=== PATIENT | male | born 1965 | race Caucasian/White ===

== ENCOUNTER 2017-05-14 17:49 | Inpatient (IN) ==
[2017-05-14] MEDS ORDERED: METOCLOPRAMIDE 10mg/2ml INJECTION IVP ONE (18:11)
[2017-05-14] MEDS ORDERED: KETOROLAC 30 MG/ML INJECTION IVP ONE (18:11)
[2017-05-14] MEDS ORDERED: HYDROMORPHONE 2 MG/ML INJECTION IVP ONE (18:11)
--- OUTSIDE RECORDS SUMMARY | 2017-05-14 18:18 | External Medical Summary | Referral Summary ---
:1965 Author Organization Via Address [address] [place] [address] Care Team Providers Name Role Phone No PCP, Pt States Primary Care Physician Encounter [facility] [id number] Date(s): 08/15/15 - 08/15/[address] [place] [id number] Discharge Diagnosis: Chronic pain in shoulder Final: Pain in right shoulder Final: Other chronic pain Discharge Disposition: 01-Home or Self Care Attending Physician: Sotero Garner MD Admitting Physician: Sotero Garner MD Referring Physician: No PCP, Pt States Vital Signs Most recent to oldest [Reference Range]: 1 Temperature Temporal Artery [36.3-37.8 degC] 36.6 degC (08/15/15 4:41 PM) Peripheral Pulse Rate [60-100 bpm] 86 bpm (08/15/15 5:48 PM) Respiratory Rate [14-20 br/min] 16 br/min (08/15/15 5:48 PM) Blood Pressure [90-140/60-90 mmHg] 132/98mmHg (08/15/15 5:48 PM) SpO2 100 % (08/15/15 5:48 PM) Problem List Condition Effective Dates Status Health Status Informant No Chronic Problems Active Tobacco user(Confirmed) Active patient Allergies, Adverse Reactions, Alerts No Known Medication Allergies Medications No Known Medications Results No data available for this section Immunizations No data available for this section Procedures No data available for this section Social History Social History Type Response Smoking Status Current every day smoker; Type: Cigarettes; Tobacco use per day : 1 Pack Assessment and Plan No data available for this section
--- OUTSIDE RECORDS SUMMARY | 2017-05-14 18:18 | External Medical Summary | Referral Summary ---
:1965 [address] [facility] Address [address] [place] [address] Care Team Providers Name Role Phone No PCP, Pt States Primary Care Physician Encounter [facility] Date(s): 08/15/15 - 08/15/[address] [facility] [address] [place] [address] Discharge Diagnosis: Chronic pain in shoulder Discharge Disposition: 01-Home or Self Care Attending Physician: Harjit Mcnally MD Admitting Physician: Bay Abarca DO Referring Physician: No PCP, Pt States Vital [...] Reactions, Alerts No Known Medication Allergies Medications cyclobenzaprine 10 mg oral tablet 10 mg 1 tabs, Oral, Bedtime (once a day), as needed for spasm, X 10 days, # 10 tabs, 0 Refill(s) Start Date: 08/15/15 Stop Date: 08/25/15 Status: OrderedPercocet 5/325 oral tablet 1 tabs, Oral, q6hr, as needed for pain, X 4 days, # 16 tabs, 0 Refill(s) Start Date: 08/15/15 Stop Date: 08/19/15 Status: Ordered Results No data available for this section Immunizations No data available for this section Procedures No data available for this section Social History Social History Type Response Smoking Status Current every day smoker; Type: Cigarettes; Tobacco use per day : 1 Pack Assessment and Plan No data available for this section
--- OUTSIDE RECORDS SUMMARY | 2017-05-14 18:18 | External Medical Summary | Continuity of Care Document ---
:1965 Author Organization Via [facility] [place] Allergies Active Description Code Type Severity Reaction Onset Reported/ Identified Relationship Clinical to Patient Status Yes No Known NKMA N/A N/A 08/15/2015 Medication Allergies Yes No Known No Drug Unknown N/A 09/27/2015 Allergies Known Aller Aller gy gies Medications Problems Date Dx Coded Attending Type Code Diagnosis Diagnosed By 08/19/2015 Patsy DOZIER, Sotero Redman Final G89.29 Other chronic pain 08/19/2015 Patsy DOZIER, Sotero Redman Reason M25.511 Pain in right shoulder Procedures Results Test Result Range STREP THROAT SCREEN (GROUP A) - STREP THROAT CULTURE (GROUP A) - 09/27/15 07:37 Microbiology Encounters ACCT No. Visit Discharge Status Pt. Type Provider Facility Loc./Unit Complaint Date/Time [id number] 08/15/2015 08/15/2015 DIS Emergency Patsy [facility] ED Right 13 15:52:00 17:48:00 , Sotero Chambers [facility] pain on Zack
[2017-05-14] MEDS ORDERED: SALINE FLUSH 10ml SYRINGE ONE ×2 (18:19→21:46)
[2017-05-14] MEDS ORDERED: IOHEXOL 300mg/ml 100ml INJECTION ONE (18:19)
[2017-05-14] MEDS ORDERED: NS 100 ML ONE (18:19)
--- NOTE | 2017-05-14 18:19 | Emergency Department Report ---
General Adult HPI - General Chief complaint: Abdominal Pain Stated complaint: Severe abd pain Time Seen by Provider: 05/14/17 17:56 Source: patient Mode of arrival: ambulatory Limitations: no limitations - History of Present Illness HPI narrative: Patient reports to ED with two hours of severe abdominal/pelvic pain with scrotal and right sided inguinal swelling. Patient states he has had a hernia for years but has never sought treatment for this because it rarely caused any problems, and if it started causing pain he could "push it back in". Patient states he usually has some degree of inguinal and scrotal swelling, but two hours ago he noticed a larger area of swelling when the pain began. He describes a constant severe right inguinal pain that radiates to the kan- umbilical region. He has not taken any medication for pain, and has never been seen by a surgeon for the hernia because he is "deathly afraid of needles". Onset (ago): hour(s) Location: abdomen, pelvis, genitals Radiation: periumbilical Severity: severe Severity scale (1-10): >10 Quality: sharp, constant Treatments prior to arrival: none - Related Data Home Medications Medication Instructions Recorded Confirmed No known Home medications [No home 05/14/17 05/14/17 meds] Allergies Allergy/AdvReac Type Severity Reaction Status Date / Time No Known Allergies Allergy Verified 05/14/17 18:21 Review of Systems All systems: reviewed and negative except as stated Constitutional: Denies: fever, chills, weakness Gastrointestinal: Reports: abdominal pain. Denies: nausea, vomiting, diarrhea, constipation Genitourinary: Denies: urgency, dysuria PFSH Patient Stated Medical History Substance Use Disorder Yes: meth Surgical History: tonsillectomy - Social History Smoking status: Current every day smoker Substance use type: former substance user, methamphetamine Physical Exam - Limitations Limitations: no limitations - General General appearance: alert, in distress (writhing in pain, holding his groin) - Normal Exams: Head:: Normocephalic without trauma Neck:: Full range of motion, without adenopathy, JVD, bruits or thyromegaly Chest/Respirations:: Clear all soliz, with good airflow, and symmetry bilaterally Cardiovascular:: Regular rate and rhythm, without murmur or gallop, Pulses 2+ all extremities, capillary refill, <2 seconds all extremities Genitourinary:: Penis without lesions Lymphatic:: No lymphadenopathy, or lymphedema noted Musculoskeletal:: No tenderness, or deformity noted, good range of motion, all extremities Neurological:: Patient is alert, and oriented, cranial nerves, motor/sensory/ cerebellar, exams w/o gross deficits, to observation Psychiatric:: Patient exhibits, appropriate attention, emotion and affect - Abdominal Exam Abdominal exam: Present: tenderness (kan-umbilical region and RLQ/pelvis), guarding, hypoactive bowel sounds (x4), hernia (large right inguinal hernia, non -reducible) Abdominal tenderness: Present: RLQ, severe - exam: Present: scrotal swelling (bilaterally). Absent: testicular tenderness - Expanded Exam image: 1 - large right non-reducible inguinal hernia Course Vital Signs Temperature 97.4 F 05/14/17 17:50 Pulse Rate 71 05/14/17 17:50 Respiratory Rate 20 05/14/17 17:50 Blood Pressure 165/91 H 05/14/17 17:50 Pulse Oximetry 100 05/14/17 17:50 Temperature 97.4 F 05/14/17 17:50 Pulse Rate 86 05/14/17 20:16 Respiratory Rate 18 05/14/17 18:31 Blood Pressure 145/87 H 05/14/17 20:16 Pulse Oximetry 100 05/14/17 20:16 Medical Decision Making - [facility] Narrative Medical decision making narrative: pt given toradol 30 mg IV, dilaudid 0.5 mg IV, reglan 10 [address] IV to relief CT abdomen/pelvis w/ contrast - patient has a large inguinal hernia with multiple loops of small bowel both within the hernia as well as adjacent to it showing bowel obstruction distal and significant incarceration within the hernia , as well as thickening to the wall within the hernia indicative of ischemia. CBC - n CMP - n UA - n Patient discussed with Dr. Danielle - will see the patient in ER, planning on admitting for immediate surgical release - Lab Data Result diagrams: 05/14/17 18:26 05/14/17 18:26 Lab Results 05/14/17 05/14/17 05/14/17 Range/Units 18:26 18:26 18:26 WBC 15.0 H (4.5-11.0) T/MM3 RBC 5.12 (4.50-5.90) M/MM3 Hgb 15.6 (13.5-17.5) GM/DL Hct 43.9 (41-53) % MCV 85.7 (80-100) UM3 MCH 30.5 (26-34) UUG MCHC 35.5 (31-37) GM/DL RDW Std Deviation 38.6 (36.9-50.2) FL Plt Count 312 (130-400) T/MM3 MPV 9.6 (9.4-12.4) UM3 Immature Gran % (Auto) 0.3 (0.0-0.5) % Neut % (Auto) 74.8 H (33-66) % Lymph % (Auto) 17.2 L (23-45) % [place] % (Auto) 6.0 (0-9.0) % Eos % (Auto) 1.4 (0-4) % Baso % (Auto) 0.3 (0-2) % Neut # 11.2 H (1.8-7.7) T/MM3 Lymph # 2.6 (1-4.8) T/MM3 [place] # 0.9 H (0-0.8) T/MM3 Eos # 0.2 (0-0.5) T/MM3 Baso # 0.0 (0-0.2) T/MM3 Abs Immat Gran (auto) 0.05 H (0.00-0.03) T/MM3 Turbidity < 20 (0-20) Sodium 137 (134-144) MEQ/L Potassium 3.7 (3.6-5) MEQ/L Chloride 105 (98-107) MEQ/L Carbon Dioxide 25 (22-30) MEQ/L Anion Gap 7 (5-15) MEQ/L BUN 19.0 (9-20) MG/DL Creatinine 0.9 (0.8-1.5) MG/DL GFR Calculation 88 BUN/Creatinine Ratio 21 (6-26) RATIO Glucose 116 H (75-110) MG/DL Calculated Osmolality 267 (261-280) MOSM/KG Calcium 9.9 (8.4-10.2) MG/DL Total Bilirubin 1.00 (0.20-1.30) MG/DL Conjugated Bilirubin 0.00 (0.00-0.30) MG/DL Unconjugated Bilirubin 0.80 (0.00-11.10) MG/DL Icterus Index < 2 (0-7) AST 20 (17-59) U/L ALT 37 (21-72) U/L Alkaline Phosphatase 100 (38-126) U/L Total Protein 7.0 (6.3-8.2) G/DL Albumin 4.5 (3.5-5.0) G/DL Globulin 2.5 (2.4-3.6) G/DL Albumin/Globulin Ratio 1.8 (1.1-2.2) RATIO Specimen Hemolysis < 15 (0-25) Ur Collection Type Urine, clean catch Urine Color Yellow (YELLOW) Urine Clarity Sl cloudy Urine pH 7.5 (5.0-8.0) Ur Specific [place] 1.020 (1.015-1.025) Urine Protein Negative (NEGATIVE) Urine Glucose (UA) Negative (NEGATIVE) Urine Ketones Trace A (NEGATIVE) Urine Occult Blood Negative (NEGATIVE) Urine Nitrate Negative (NEGATIVE) Urine Bilirubin Negative (NEGATIVE) Urine Urobilinogen 0.2 (NORMAL) EU/DL Ur Leukocyte Esterase Negative (NEGATIVE) Urinalysis Comment Microscopic not ind. Disposition Clinical Impression: Incarcerated inguinal hernia Disposition: 02 [place] [facility] [place] Care Condition: Improved Prescriptions: No Action No known Home medications [No home meds] 0 #0 misc - Seen By: physician
[2017-05-14] MEDS ORDERED: FentaNYL 100 MCG/2 ML INJECTION IVP ONE (18:37)
[2017-05-14] MEDS ORDERED: ERTAPENEM 1 G in NS 100 ML IV ONE (20:59)
[2017-05-14] MEDS: LR 1,000 ML IV SCH ×2 (21:30→23:01)
--- NOTE | 2017-05-14 21:39 | Anesthesia Preoperative Report ---
Anesthesia Preoperative Record - Date and Time Date: 05/14/17 Preoperative Diagnosis: Severe abd pain Proposed Procedure: Exp. lap NPO Since Date: 05/14/17 NPO Since Time: 12:00 (HAD FULL LUNCH) Allergies/Adverse Reactions: Allergies Allergy/AdvReac Type Severity Reaction Status Date / Time No Known Allergies Allergy Verified 05/14/17 18:21 - Vital Signs Vital Signs: Temperature 97.4 F 05/14/17 17:50 Pulse Rate 86 05/14/17 20:16 Respiratory Rate 18 05/14/17 18:31 Blood Pressure 145/87 H 05/14/17 20:16 Pulse Oximetry 100 05/14/17 20:16 Oxygen Delivery Method Room Air Height and Weight: Height 5 ft 10 in Weight 93.7 kg - Medications Home Medications: Home Medications Medication Instructions Recorded Confirmed Type No known Home medications [No home 05/14/17 05/14/17 History meds] Is Patient on Beta Med?: No - Surgical History HEENT Surgeries: Reports: Tonsillectomy Anesthesia Reactions: None Hx Family Anesthesia Reaction: No History of Motion Sickness: No - Social History Smoking Status: Current every day smoker packs per day: 1 Pack-years: 40 Hx Chewing Tobacco Use: No Second Hand Exposure: Yes Substance Use Type: former substance user, methamphetamine Alcohol Intake Frequency: does not drink - Pertinent Findings Laboratory: CBC and BMP 05/14/17 18:26 05/14/17 18:26 BMP 05/14/17 18:26 Sodium 137 Potassium 3.7 Chloride 105 Carbon Dioxide 25 BUN 19.0 Creatinine 0.9 Glucose 116 H Calcium 9.9 Liver Function 05/14/17 Range/Units 18:26 Total Bilirubin 1.00 (0.20-1.30) MG/DL AST 20 (17-59) U/L ALT 37 (21-72) U/L Alkaline Phosphatase 100 (38-126) U/L Albumin 4.5 (3.5-5.0) G/DL Urine 05/14/17 Range/Units 18:26 Urine Color Yellow (YELLOW) Urine Clarity Sl cloudy Urine pH 7.5 (5.0-8.0) Ur Specific [place] 1.020 (1.015-1.025) Urine Protein Negative (NEGATIVE) Urine Glucose (UA) Negative (NEGATIVE) EKG Rhythm: Normal Sinus Rhythm - Physical Exam Respiratory Exam: Present: lungs clear, bilateral breath sounds equal Cardiovascular Exam: Present: regular rate and rhythm, no murmur - Airway Assessment Mallampati Score: II TMD: 3 Fingerbreadths Neck Extension: good Overall Assessment: no airway concerns - ASA ASA Score: 2, E - Plan Anesthesia: General Inhalation Gases - Discussion Discussion: Discussed risks/options/alternatives of anesthesia and questions answered. Patient consents. Nursing pain assessment noted. Attestation Statement: Prior to the delivery of any anesthetic medication, I examined the patient, developed the plan, obtained the patient's consent and discussed the risk and benefits of the procedure with the patient/guardian. - Additional Information Comments: Emergent Case with acute Abdomen. RSI with CCP Seen by Anesthesia: Yes
[2017-05-14] MEDS ORDERED: KETAMINE 500 MG/10 ML INJECTION ONE (21:44)
[2017-05-14] MEDS ORDERED: SUFentanil 50mcg/ml INJECTION ONE (21:44)
[2017-05-14] MEDS ORDERED: PROPOFOL 20 ML ONE (21:44)
[2017-05-14] MEDS ORDERED: ROCURONIUM 50 MG/5 ML INJECTION IVP ONE (21:44)
[2017-05-14] MEDS ORDERED: SUCCINYLCHOLINE 20mg/mL 10mL INJECTION ONE (21:44)
--- NOTE | 2017-05-15 00:09 | General Surgery Procedure Note ---
Date of Procedure: 05/15/17 Surgeon: Shashi Anesthesia: General TIVA, General Inhalation Gases Postoperative Diagnosis: incarcerated right scrotal/inguinal hernia Procedure: right inguinal hernia repair, exploratory laparotomy. Estimated Blood Loss: See Anesthesia Record.
[2017-05-15] MEDS ORDERED: METOCLOPRAMIDE 10mg/2ml INJECTION IVP PRN (00:31)
[2017-05-15] MEDS ORDERED: ONDANSETRON 4 MG/2 ML INJECTION IVP PRN ×2 (00:31→00:32)
[2017-05-15] MEDS ORDERED: KETOROLAC 30 MG/ML INJECTION IVP PRN (00:32)
[2017-05-15] MEDS ORDERED: HYDROMORPHONE 2 MG/ML INJECTION IVP PRN (00:32)
[2017-05-15] MEDS: D5-1/2NS with KCL 20mEq 1,000 ML IV SCH ×3 (00:43→18:40)
[2017-05-15] MEDS: FAMOTIDINE PB 20 MG/50 ML BAG IV SCH ×3 (00:58→23:57)
[2017-05-15 02:19] VITALS: BMI 30.7
--- NOTE | 2017-05-15 07:02 | History and Physical ---
FINDINGS Mr. Odell is a 51-year-old male whom I was asked to see today as a result of a suspected incarcerated, possible strangulated right inguinal hernia. The patient was fairly somnolent upon my entering the trauma bay. He did answer when spoken to but was very short with his answers. Apparently he has had an inguinal hernia for the last 15-20 years. The patient states that it has never really caused him much in the way of pain or discomfort until after lunch today. The patient states that he then began to develop a severe pain. Pain was constant in nature. Pain was so severe that he presented to the emergency room for further evaluation. The patient has received some pain medication and currently, as above, is fairly somnolent and it was difficult to obtain much history from the patient himself. PAST MEDICAL HISTORY Chronic Illness/System disorders: None. PAST SURGICAL HISTORY Tonsillectomy. MEDICATIONS No known drug allergies. SOCIAL HISTORY The patient denies alcohol use. He states he smokes about a pack of cigarettes a day. Apparently he has shared with the ER physician that he used to abuse methamphetamines. FAMILY HISTORY The patient states that his mother her 60s from a stroke. His father in his 80s of unknown cause. REVIEW OF SYSTEMS A review of systems was undertaken with the patient and was essentially negative except as stated above in findings section for Constitutional, HEENT, Cardiac, Respiratory, GI, , Musculoskeletal, Hematologic/Oncologic, Endocrine and Psychiatric. PHYSICAL EXAMINATION GENERAL: The patient is a 51-year-old male who does appear to be in some discomfort. VITALS: Pulse 89. Blood pressure 145/87. SaO2 100% on room air. Temperature 97.4. HEENT: Normocephalic. Pupils are equal, round and reactive to light and accommodation. NECK: Supple without lymphadenopathy. CHEST: Clear to auscultation bilaterally. HEART: Regular rate and rhythm. Normal S1 and S2 without gallops, murmurs or clicks. ABDOMEN: Visualization of the abdomen does reveal a large mass within the right inguinal region. The mass does extend in the right scrotum. The abdomen itself is fairly scaphoid in its appearance. Palpation of the abdominal wall does not elicit any severe pain. There was no evidence for guarding or rebound. Palpation within the right inguinal region does reveal a firm mass. This mass is tender upon palpation. Additionally, the mass within the scrotum is also fairly firm and tender in nature. Mass is not reducible in nature. EXTREMITIES: Without clubbing, cyanosis, or edema. NEURO: Cranial nerves II-XII grossly intact. Patient is without focal motor or sensory deficits. LABORATORY/RADIOGRAPH EVALUATION The patient had a CBC through in the ER and his white count was 15.0. Hemoglobin is 15.6. CMP was obtained and found to be without marked abnormalities. CT scan of his abdomen and pelvis was obtained. CT scan showed a large right inguinal hernia containing bowel loops with resultant obstruction. There was some extensive adjacent fat stranding. Some bowel loops within the hernia showed some wall thickening raising the possibility of ischemia. ASSESSMENT A 51-year-old gentleman with incarcerated, possible strangulated right inguinal hernia with associated small bowel obstruction. PLAN Right inguinal herniorrhaphy, possible laparotomy, possible small bowel resection. I informed the patient that given his severe pain noted on examination within his right inguinal region and right scrotum in conjunction with this incarcerated hernia and CT scan findings suggestive of possible ischemic ischemia involving his small bowel with associated small bowel obstruction, I would recommend proceeding with surgical intervention. I did discuss with the patient what a right inguinal herniorrhaphy would entail with possible laparotomy, possible small bowel resection. The patient understood and wished to proceed. YAAKOV
[2017-05-15] MEDS: MORPHINE SULFATE 4 MG SYRINGE IVP PRN ×2 (07:38→12:08)
--- NOTE | 2017-05-15 08:15 | CT Scan Report ---
Indication: inguinal hernia, incarcerated PROCEDURE: CT abdomen pelvis w con: Encounter: Initial Comparison: None Technique: Axial CT images were performed through the abdomen and pelvis after the administration of intravenous contrast. Coronal and sagittal two-dimensional reformats. Automated Exposure Control and Iterative Reconstruction dose reducing techniques were utilized. Contrast: Omnipaque 300 99 mL Findings: The lung bases are clear. The liver shows several small probable cysts, most of which are too small to definitively characterize. No bile duct dilatation. The gallbladder is unremarkable. The spleen, pancreas and adrenal glands are within normal limits. Right kidney is normal. Left renal cyst. No abdominal or pelvic lymphadenopathy. Bladder is displaced towards the left by dilated small bowel loops with wall thickening and inflammatory change in the right central pelvis. This is due to an incarcerated right inguinal hernia with thick-walled dilated small bowel loops within the hernia sac. This appears to be an indirect type. Hernia measures up to 11 cm transverse diameter and over 15 cm craniocaudally. No free air or mesenteric venous gas appreciated. There are some upstream mildly dilated fluid-filled loops of small bowel as well. Bone windows are unremarkable. The appendix is normal. Bone windows are unremarkable for age. Impression: Large incarcerated right inguinal hernia causing a high-grade small bowel obstruction. Developing strangulation cannot be excluded as there is wall thickening and edema within several small bowel loops that could be due to vascular compromise and developing ischemia. Emergent surgical consultation is recommended. There is a preliminary report by [facility]. .
--- NOTE | 2017-05-15 09:32 | Anesthesia Postoperative Note ---
- Date and Time Date: 05/15/17 Time: 09:31 - Status Patient Participated in Evaluation: Patient Participated in Person Vital Signs: Temperature 98.2 F 05/15/17 03:30 Pulse Rate 94 05/15/17 05:45 Respiratory Rate 17 05/15/17 05:45 Blood Pressure 131/82 05/15/17 05:00 Pulse Oximetry 96 05/15/17 05:45 Oxygen Delivery Method Room Air Oxygen Flow Rate 2 Respiratory Function: Airway Patent Cardiovascular Function: Regular Pulse EKG Rhythm: Normal Sinus Rhythm Mental Status: Alert and Oriented Hydration: IV Infusing Complications During Recover: None Apparent Post Anesthesia Care Notes: pt resting comfortably in ICU. No questions or concerns at this time. - Follow-Up Instructions Instructions: Per Surgeon
[2017-05-15] MEDS: KETOROLAC 15 MG/ML INJECTION IVP PRN ×2 (12:07→21:32)
[2017-05-15] MEDS: ERTAPENEM 1 G in NS 100 ML IV SCH (13:29)
--- NOTE | 2017-05-15 14:15 | Operative Note ---
DATE OF SERVICE 05/15/2017 SURGEON Landen Danielle MD PREOPERATIVE DIAGNOSIS Incarcerated, possible strangulated right inguinal/scrotal hernia. POSTOPERATIVE DIAGNOSIS Incarcerated right inguinal/scrotal inguinal hernia. PROCEDURE Repair of incarcerated right inguinal/scrotal hernia, exploratory laparotomy. ANESTHESIA General endotracheal EBL AND FLUIDS Please see chart. BRIEF HISTORY/INDICATIONS Mr. Odell is a 51-year-old gentleman who has had a right inguinal hernia over the last 15-20 years per his report. Today, however, the hernia became exquisitely painful and firm in nature. The patient presented to our emergency room facility. CT scan was obtained that did reveal a potentially strangulated right inguinal hernia. Upon examination the patient was found to have a large mass within the right inguinal region that extended into the right scrotum. This mass was quite tender upon palpation. Mass was nonreducible in nature. As a result of the above indications, it was recommended to the patient that he undergo surgical intervention. For completeness please refer to notes included in the patient's chart. DESCRIPTION OF PROCEDURE After informed consent was obtained, patient was brought to the operative suite and placed on the table in a supine fashion. Abdomen and scrotal region was then prepped and draped in sterile fashion. Formal time-out was then completed. A 10 cm transverse incision was then made overlying the large mass within the right inguinal region. Mass itself was perhaps on the order of about 15 cm in diameter and did extend into the right scrotum. Incision was made just above the pubic symphysis and extended out laterally. Dissection was carried down to the deep subcuticular tissues, through the underlying external oblique aponeurosis. A large hernia sac was then identified. The hernia sac was able to be delivered up from the scrotum and into the incision. Hernia sac itself was perhaps 15-20 cm in diameter. Hernia sac was opened and there was a copious amount of fluid within the hernia sac. Fluid was suctioned. There was a fair amount of small bowel contents within the hernia sac. The small bowel itself did appear somewhat "purplish" but did not appear to be frankly necrotic in nature. I attempted to try to reduce the bowel through the inguinal floor. This was to no avail despite multiple attempts. Therefore elected to proceed with a laparotomy. A standard midline incision was made from just above the pubic symphysis up to and then just above the umbilicus. Underlying subcutaneous tissues, fascia and peritoneum were opened to the extent of the incision. Abdominal cavity was explored. Colon did contain a fair amount of stool throughout and it was therefore difficult to ascertain any evidence for mass. One could feel a nodule along the lateral aspect of the right lobe of the liver. Upon visualization, this nodule was cystic in nature. Remaining Jakob's capsule was smooth. Proximal small bowel at the ligament of Treitz was collapsed and appeared normal. As one ran the bowel further distally, it did become significantly dilated as it entered into the right inguinal canal. The bowel also, as it entered in the inguinal canal, did appear somewhat "bluish " in nature but was not frankly necrotic. Bowel was then grasped from within the peritoneal cavity and attempted to be reduced through the inguinal canal. This however was again to no avail. I was then able to place my finger through the inguinal incision and into the indirect hernia sac. The adjacent fascia was incised to open the defect to a greater extent. Now one could grasp the bowel and began to reduce it through the inguinal canal back into the peritoneal cavity. Gentle pressure was applied and eventually the entire length of small bowel that was incarcerated within the hernia sac was able to be reduced. There was perhaps 25-30 cm of small bowel that had become incarcerated within the hernia sac. Next attention was then focused towards repair of the inguinal hernia. Anatomy was quite distorted as a result of the chronicity and size of his inguinal/scrotal hernia. Cord structures were able to be identified or dissected out. Hernia sac was divided with electrocautery along its midportion. Hernia sac was then suture ligated in a pursestring fashion with 3-0 Vicryl. Hernia sac was then dissected out towards its base circumferentially. Cord structures were identified and also dissected free from the surrounding tissues. The shelving edge of the inguinal ligament was identified and dissected out. Medially the internal oblique and transverse aponeurosis were also identified and dissected out to facilitate repair. Next a standard mesh plug inguinal herniorrhaphy was performed without incident. Large mesh plug was placed through the internal ring, further reducing the ligated indirect hernia sac. Mesh plug was then imbricated to the surrounding tissues by placing several simple interrupted sutures of 2-0 Prolene. Mesh overlay was then brought forth the operative field and imbricated underlying tissues in a standard [place] fashion. First mesh overlay was imbricated to the pubic symphysis with 2-0 Prolene. Mesh overlay was imbricated along the shelving edge out laterally in a running fashion with 2-0 Prolene. Medially the mesh overlay was imbricated to the underlying internal oblique and transverse aponeurosis. Tail portions were then cut within the mesh and allowed to envelope the cord structures as it exited through the internal ring. Tail portions of the mesh were then also imbricated to one another in a running fashion with 2-0 Prolene. Newly created internal ring could easily accommodate tip of a hemostat between the cord structures and mesh itself. Meticulous hemostasis was then obtained. External oblique aponeurosis was closed anterior to the cord structures. Subcutaneous tissues were then reapproximated in a running fashion with 3-0 Vicryl. Skin incisions were then closed with claudy. Attention was then focused back to the midline incision. Small bowel was again inspected and this time found to be "pink", without any evidence for vascular compromise. Small bowel was no longer "bluish" in nature. The omentum coming forth in the transverse colon was then grasped and brought forth overlying the small bowel. Instrument, sponge and needle counts were performed and found to be correct. Attention was then directed towards closure of the midline incision. Fascia was closed in a running fashion with # 1 PDS. Skin was then closed with claudy. The patient is in the process of awakening from his anesthetic and will be sent back to the recovery room once deemed in stable condition. YAAKOV
--- NOTE | 2017-05-15 16:25 | Progress Note ---
DATE 05/15/2017 FINDINGS Mr. Odell this morning states that overall he is feeling better. He is having some incisional discomfort but the severe abdominal pain he was experiencing yesterday has resolved. OBJECTIVE VITALS: Afebrile. Normotensive. Please refer to EMR. CHEST: Clear to auscultation bilaterally. HEART: Regular rate and rhythm. Normal S1, S2, without gallops, murmurs or clicks. ABDOMEN: Palpation of the abdomen does reveal some incisional tenderness. His dressings are intact and nonbloody. Palpation again of the abdomen did not reveal any evidence for guarding or rebound. LABORATORY/RADIOGRAPHIC EVALUATION The patient had a CBC today and his white count is elevated at 19.3. Does have a slight left shift with 13% bands. BMP obtained and found to be within normal limits. ASSESSMENT 51-year-old gentleman status post repair of incarcerated right inguinal hernia, exploratory laparotomy, overall doing well. PLAN Given his increased leukocytosis and left shift, will go ahead and reinitiate antibiotic therapy today. Will place him back again on Invanz 1 g IV q.d. Will recheck lab tomorrow and continue with current care. Will transfer the patient out to surgical unit. YAAKOV
[2017-05-15] MEDS ORDERED: NS FLUSH BAG 500ml IV PRN (23:42)
[2017-05-16] MEDS: D5-1/2NS with KCL 20mEq 1,000 ML IV SCH ×3 (03:38→22:17)
[2017-05-16] MEDS: KETOROLAC 15 MG/ML INJECTION IVP PRN ×3 (05:53→19:12)
[2017-05-16] MEDS: ERTAPENEM 1 G in NS 100 ML IV SCH (08:28)
[2017-05-16] MEDS: FAMOTIDINE PB 20 MG/50 ML BAG IV SCH ×2 (12:05→23:39)
[2017-05-16] MEDS ORDERED: Bisacodyl EC TAB 5 MG TABLET PO ONE (16:27)
--- NOTE | 2017-05-16 18:57 | Progress Note ---
DATE OF SERVICE 05/16/2017 FINDINGS Mr. Odell is without complaints today. He states that he continues to "feel better." EXAM VITAL SIGNS: Afebrile, normotensive. Please refer to EMR. ABDOMEN: Soft, nontender. Incisions are clean, dry, and intact. LABORATORY/RADIOGRAPHIC EVALUATION The patient had a CBC today and his white count is improved at 11.2. Hemoglobin is stable at 13.8. BMP obtained and found to be essentially within normal limits. ASSESSMENT 51-year-old gentleman status post exploratory laparotomy, right inguinal hernia repair - patient currently doing well. PLAN Will DC Munoz. Will give Dulcolax tablet to encourage GI activity. If patient does have a bowel movement and is tolerating regular food tomorrow and his pain is well-controlled with p.o. pain meds, will likely discharge at that time. I am pleased with the patient's progress. YAAKOV
[2017-05-17] MEDS: KETOROLAC 15 MG/ML INJECTION IVP PRN (03:07)
[2017-05-17] MEDS: D5-1/2NS with KCL 20mEq 1,000 ML IV SCH ×2 (06:20→07:20)
[2017-05-17] MEDS: ERTAPENEM 1 G in NS 100 ML IV SCH (08:18)
[2017-05-17] MEDS ORDERED: HYDROCODONE/APAP 5mg/325mg TABLET PO PRN (08:32)
[2017-05-17 11:59] VITALS: BP 126/70; PULSE 87; RESP 16; TEMP 96.8; O2SAT 96
[2017-05-17] MEDS ORDERED: POLYETHYL GLYCOL 3350 17gm PACKET PO ONE (13:22)
[2017-05-17] MEDS ORDERED: BISACODYL 10 MG SUPPOSITORY RECTALLY ONE (13:22)
[2017-05-17] MEDS: FAMOTIDINE PB 20 MG/50 ML BAG IV SCH (13:34)
--- NOTE | 2017-05-17 13:42 | Discharge Instructions ---
Discharge Plan - Med Rec/Dispo Referrals/Follow Up: Landen Danielle MD [Physician] - 05/28/17 11:00 am ([place] will be removed at post op appointment with ETIENNE Su on SaturdayMay 28 at 11:00 AM.) Prescriptions: New Hydrocodone/APAP 5/325 [Tofte 5/325] 1 - 2 tab PO Q5H PRN #30 tab PRN Reason: Pain - Disposition Discharged Home, Self-Care
--- NOTE | 2017-05-17 16:49 | Progress Note ---
DATE OF SERVICE 05/17/2017 FINDINGS Mr. Odell was seen earlier today on morning rounds. He states he is feeling well. He still is passing flatus but has not had a BM. EXAM VITAL SIGNS: Afebrile, normotensive. Please refer to EMR. ABDOMEN: Soft. Minimal incisional tenderness. Incisions within the inguinal region and abdominal wall are clean, dry, and intact. ASSESSMENT 51-year-old gentleman status post right inguinal herniorrhaphy and exploratory laparotomy secondary to incarcerated right inguinal hernia. Patient doing quite well. PLAN Will go ahead and give an additional cathartic in an attempt to promote bowel activity. Will place on p.o. pain meds. If the patient continues to do well today and does have return of his bowel activity, will likely discharge this afternoon. YAAKOV
--- NOTE | 2017-05-23 10:06 | Discharge Summary ---
Discharge Information Date of admission: 05/14/17 22:08 Attending Physician: Landen Danielle MD - Discharge Diagnosis (1) Incarcerated inguinal hernia Status: Acute - Procedures Procedures: DATE OF SERVICE 05/15/2017 SURGEON Landen Danielle MD PREOPERATIVE DIAGNOSIS Incarcerated, possible strangulated right inguinal/scrotal hernia. POSTOPERATIVE DIAGNOSIS Incarcerated right inguinal/scrotal inguinal hernia. PROCEDURE Repair of incarcerated right inguinal/scrotal hernia, exploratory laparotomy. - Laboratory Labs: 05/16/17 04:20 05/16/17 04:20 Laboratory Tests 05/14/17 05/15/17 05/16/17 18:26 04:46 04:20 WBC 15.0 H 19.3 H 11.2 H D - Radiology Radiology: 05-14-17 CT Impression: Large incarcerated right inguinal hernia causing a high-grade small bowel obstruction. Developing strangulation cannot be excluded as there is wall thickening and edema within several small bowel loops that could be due to vascular compromise and developing ischemia. Emergent surgical consultation is recommended. - History of Present Illness HPI: Mr. Odell is a 51-year-old male whom I was asked to see today as a result of a suspected incarcerated, possible strangulated right inguinal hernia. The patient was fairly somnolent upon my entering the trauma bay. He did answer when spoken to but was very short with his answers. Apparently he has had an inguinal hernia for the last 15-20 years. The patient states that it has never really caused him much in the way of pain or discomfort until after lunch today. The patient states that he then began to develop a severe pain. Pain was constant in nature. Pain was so severe that he presented to the emergency room for further evaluation. The patient has received some pain medication and currently, as above, is fairly somnolent and it was difficult to obtain much history from the patient himself. Hospital Course This is a general summary of the patient's hospital course. For more details refer to the complete medical record. Please see operative report for details of exploratory laparotomy, repair of incarcerated inguinal hernia. Post op he progressed well. Diet and activity advanced as tolerated. Discharged on May 17 with follow up appointment made with Dr. Danielle. DVT Prophylaxis: SCD's Discharge Plan - Med Rec/Dispo Referrals/Follow Up: Landen Danielle MD [Physician] - 05/28/17 11:00 am ([place] will be removed at post op appointment with ETIENNE Su on SaturdayMay 28 at 11:00 AM.) Brittanie Instructions: Inguinal Hernia (DC), Inguinal Hernia Repair (DC) Prescriptions: New Hydrocodone/APAP 5/325 [Ecru 5/325] 1 - 2 tab PO Q5H PRN #30 tab PRN Reason: Pain - Disposition Discharged Home, Self-Care
== END 2017-05-17 15:47 | disposition home or self-care (01) | DRG 352 ==
LOC: ED 17:49 → CCU 22:08 → SRG 05-15 13:21
PROVIDERS: ADMIT Surgery; ATTEND Surgery